=== PATIENT | female | born 1935 | race Caucasian/White ===

== ENCOUNTER 2017-09-05 17:55 | Emergency (ER) | payer OTHER ==
[~2017-09-05] VITALS: Ht 160 cm; Wt 64.4 kg
[~2017-09-05 17:55] MED LIST: DAYPRO600 M1 PO; VICODIN 500 MG-1 TAB PO
[2017-09-05] MEDS ORDERED: CARTIA XT240 MG PO (20:43)
[2017-09-05] MEDS ORDERED: QUINAPRIL20 MG PO (20:44)
== END 2017-09-05 21:16 | disposition left against medical advice (07) ==
LOC: ED 17:55
DX: S02.2XXA Fracture of nasal bones, initial encounter for closed fracture (principal); S02.40DA Maxillary fracture, left side, initial encounter for closed fracture; S01.81XA Laceration without foreign body of other part of head, initial encounter; Z90.710 Acquired absence of both cervix and uterus; Z79.899 Other long term (current) drug therapy; W01.198A Fall on same level from slipping, tripping and stumbling with subsequent striking against other object, initial encounter; Y93.89 Activity, other specified; Y92.89 Other specified places as the place of occurrence of the external cause; Y99.9 Unspecified external cause status

== ENCOUNTER 2019-02-17 17:10 | Emergency (ER) | payer OTHER ==
[~2019-02-17] VITALS: Ht 160 cm; Wt 64.4 kg
[~2019-02-17 17:10] MED LIST changes: +CARTIA XT240 MG PO; +QUINAPRIL20 MG PO
[2019-02-17 17:42] LABS: HEMATOCRIT 38.2 % (37.0-47.0); HEMOGLOBIN 12.6 g/dl (12.0-16.0); MEAN CELL VOLUME 91.6 fl (81.0-99.0); MEAN CORPUSCULAR HGB 30.2 pg (27.0-31.0); MEAN PLATELET VOLUME 10.2 fl (9.6-12.3); PLATELET COUNT AUTOMATED 267 10*3/uL (130-400); RED BLOOD COUNT 4.17 10*6/uL (4.10-5.10); RED CELL DISTRI WIDTH 13.6 % (0-14.5); WHITE BLOOD COUNT 12.6 10*3/uL (4.8-10.8)
[2019-02-17 17:58] LABS: ALKALINE PHOSPHATASE 123 U/L (45-117); BUN 15 mg/dl (7-24); CHLORIDE 111 mmol/L (98-107); CREATININE 0.79 mg/dL (0.55-1.02); POTASSIUM 3.7 mmol/L (3.5-5.1); SGOT/AST 14 IU/L (3-35); SGPT/ALT 15 U/L (12-78); SODIUM 142 mmol/L (136-145); TOTAL PROTEIN 7.6 gm/dL (6.4-8.2)
[2019-02-17 18:07] LABS: TOTAL CELLS COUNTED 100 #CELLS
[2019-02-17 18:08] LABS: PLATELET SUFFICIENCY NORMAL (NORMAL)
[2019-02-17] MEDS ORDERED: LIDEX 0.05% CRE15 GM T (18:35)
[2019-02-17] MEDS ORDERED: CEPHALEXIN500 M1 PO (18:35)
== END 2019-02-17 18:41 | disposition home or self-care (01) ==
LOC: ED 17:10
PROVIDERS: Nurse Practitioner Family
DX: S60.462A Insect bite (nonvenomous) of right middle finger, initial encounter (principal); L03.113 Cellulitis of right upper limb; Z79.899 Other long term (current) drug therapy; Z90.710 Acquired absence of both cervix and uterus; W57.XXXA Bitten or stung by nonvenomous insect and other nonvenomous arthropods, initial encounter; Y93.89 Activity, other specified; Y92.89 Other specified places as the place of occurrence of the external cause; Y99.8 Other external cause status

== ENCOUNTER → 2022-08-26 | Outpatient (CLI) | payer OTHER ==
[~2022-08-26] MED LIST changes: +CEPHALEXIN500 M1 PO; +LIDEX 0.05% CRE15 GM T
== END | disposition home or self-care (01) ==
LOC: US 00:51
PROVIDERS: ATTEND Internal Medicine
DX: R74.8 Abnormal levels of other serum enzymes (principal)

== ENCOUNTER → 2024-10-15 | Outpatient (CLI) | payer OTHER | END | disposition home or self-care (01) | LOC: US 13:44 | PROVIDERS: ATTEND Internal Medicine | DX: R10.9 Unspecified abdominal pain (principal); I10 Essential (primary) hypertension; Z90.710 Acquired absence of both cervix and uterus ==